=== PATIENT | female | born 1990 | race Caucasian/White ===

== ENCOUNTER 2017-04-28 19:31 | Emergency (ER) | payer OTHER ==
[~2017-04-28] VITALS: Ht 175.3 cm; Wt 111.6 kg
[2017-04-28 19:45] VITALS: Ht 175.3 cm; Wt 111.6 kg
[2017-04-28 23:05] VITALS: BP 110/86
== END 2017-04-28 23:05 | disposition home or self-care (01) ==
LOC: ED 19:31
DX: N39.0 Urinary tract infection, site not specified (principal)
CPT/HCPCS: J1885

== ENCOUNTER 2017-06-16 18:47 | Emergency (ER) | payer OTHER ==
[~2017-06-16] VITALS: Ht 175.3 cm; Wt 111.6 kg
[2017-06-16 18:58] VITALS: Ht 175.3 cm; Wt 111.6 kg
[2017-06-16 21:55] VITALS: BP 130/79
== END 2017-06-16 21:55 | disposition home or self-care (01) ==
LOC: ED 18:47
DX: S83.91XA Sprain of unspecified site of right knee, initial encounter (principal); X50.1XXA Overexertion from prolonged static or awkward postures, initial encounter; Y93.89 Activity, other specified; Y92.89 Other specified places as the place of occurrence of the external cause; Y99.8 Other external cause status
CPT/HCPCS: J1885; Q0092

== ENCOUNTER 2017-08-24 19:50 | Emergency (ER) | payer OTHER ==
[~2017-08-24] VITALS: Ht 175.3 cm; Wt 113.4 kg
[2017-08-24 19:54] VITALS: Ht 175.3 cm; Wt 113.4 kg
[2017-08-24 21:38] VITALS: BP 122/89
== END 2017-08-24 21:38 | disposition home or self-care (01) ==
LOC: ED 19:50
DX: G57.01 Lesion of sciatic nerve, right lower limb (principal)
CPT/HCPCS: J1885

== ENCOUNTER 2018-04-19 14:23 | Emergency (ER) | payer OTHER ==
[~2018-04-19] VITALS: Ht 175.3 cm; Wt 119.3 kg
[2018-04-19 15:11] VITALS: BP 140/63; Ht 175.3 cm; Wt 119.3 kg
[2018-04-19 16:34] LABS: PLATELET COUNT 215 x10^3mcL (130-400)
[2018-04-19 16:39] LABS: RED CELL DISTRIBUTION WIDTH 17.5 % (11.5-14.5)
[2018-04-19 16:40] LABS: CALCIUM 8.8 mg/dL (8.5-10.1); CHLORIDE SERUM 100 mmol/L (98-107); CREATININE SERUM 0.9 mg/dL (0.6-1.0); GFR1 > 60 mL/min; GLUCOSE SERUM 120 mg/dL (74-106); POTASSIUM SERUM 3.7 mmol/L (3.5-5.1); SODIUM SERUM 136 mmol/L (136-145)
[2018-04-19 16:44] LABS: ALBUMIN 3.8 g/dL (3.4-5.0); ALKALINE PHOSPHATASE 100 U/L (46-116); ALT/SGPT 27 U/L (14-59); AST/SGOT 21 U/L (15-37); BILIRUBIN TOTAL 0.69 mg/dL (0.20-1.00); LIPASE 148 IU/L (73-393)
[2018-04-19 16:46] LABS: TOTAL PROTEIN, SERUM 8.5 g/dL (6.4-8.2)
== END 2018-04-19 18:00 | disposition home or self-care (01) ==
LOC: ED 14:23
PROVIDERS: Emergency Medicine
DX: K52.9 Noninfective gastroenteritis and colitis, unspecified (principal)
CPT/HCPCS: J2405; J7030